=== PATIENT | male | born 1965 | race Caucasian/White ===

== ENCOUNTER 2019-12-19 07:26 | Outpatient (CLI) | payer OTHER, SELFPAY ==
--- NOTE | ~2019-12-19 | XR_ITS ---
EXAMINATION: XR ankle LT min 3V EXAM DATE: 12/19/2019 07:57 INDICATION: No known recent injury provided at this time. Pain of the left ankle. TECHNIQUE: Left ankle frontal, lateral and oblique projections obtained and reviewed. There is no pr ior study for comparison. FINDINGS: The left ankle mortise appears intact. Sequela from prior malleolar avulsion injuries. L arge posterior calcaneal spur. Mild Quan deformity. 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 There are no acute fractures or dislocations identified. There is no subcutan eous gas. Some diffuse soft tissue swelling. There are no radiopaque foreign bodies. IMPRESSION: Chronic findings as above. Reviewed, dictated and finalized at location A. 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
[2019-12-19 08:25] LABS: Basophils Percent Auto 0.4 % (0.2-1.2); Eosinophils Absolute Auto 0.2 K/mm3 (0-0.3); Eosinophils Percent Auto 2.2 % (0-4.4); Hemoglobin 13.1 g/dL (14.0-18.0); Immature Granulocyte Absolute 0.02 K/mm3 (0.00-0.031); Immature Granulocyte Percent A 0.3 % (0-0.5); Lymphocytes Absolute Auto 2.77 K/mm3 (0.9-3.2); Lymphocytes Percent Auto 35.2 % (18.3-44.2); Mean Corpuscular HGB Conc 31.2 g/dl (32-36); Mean Corpuscular Hemoglobin 29.2 pg (26-34); Mean Corpuscular Volume 93.5 fl (80-100); Mean Platelet Volume 10.7 fl (7.4-10.4); Monocytes Absolute Auto 0.5 K/mm3 (0.1-0.6); Monocytes Percent Auto 6.9 % (2.6-8.5); Neutrophils Absolute Auto 4.3 K/mm3 (1.3-6.7); Platelet Count Result 329 k/mm3 (150-375); Red Blood Count 4.49 M/mm3 (4.6-6.20); Red Cell Distribution Width 14.7 % (11.5-14.5); White Blood Count 7.9 K/mm3 (4.5-10.0)
[2019-12-19 08:38] LABS: Alanine Aminotransferase 31 U/L (4-50); Albumin Level 4.8 g/dL (3.5-5.1); Alkaline Phosphatase 116 U/L (38-126); Aspartate Amino Transferase 31 U/L (17-59); Bilirubin,Total 0.7 mg/dL (0.2-1.3); Blood Urea Nitrogen 19 mg/dL (9-20); Calcium 9.7 mg/dL (8.4-10.2); Carbon Dioxide 30 mmol/L (22-30); Chloride 98 mmol/L (98-107); Cholesterol 229 mg/dL (0-200); Estimated Glomerular Filt Rate > 60; Glucose 89 mg/dL (75-110); HDL Direct 62 mg/dL; Lipase 76 U/L (23-300); Potassium 3.7 mmol/L (3.4-5.0); Sodium 136 mmol/L (137-145); Triglycerides 202 mg/dL (<150)
[2019-12-19 08:49] LABS: LDL Cholesterol Direct 126 mg/dL
[2019-12-19 09:35] LABS: Free T4 Free Thyroxine 1.33 ng/mL (0.78-2.19)
== END 2019-12-19 07:27 | disposition home or self-care (01) ==
PROVIDERS: PCP Family Medicine; Visit Provider Physician Assistant
DX: R53.83 Other fatigue (principal); R10.9 Unspecified abdominal pain; Z13.220 Encounter for screening for lipoid disorders; M25.579 Pain in unspecified ankle and joints of unspecified foot
CPT/HCPCS: 36415; 73610; 80053; 80061; 83690; 84439; 84443; 85025

== ENCOUNTER 2020-01-01 07:15 | Outpatient (CLI) | payer OTHER, SELFPAY ==
--- NOTE | ~2020-01-01 | MM_ITS ---
EXAMINATION: MM screening erin BI w elly HISTORY: Screening mammogram TECHNIQUE: Craniocaudal and mediolateral oblique 3-D tomosynthesis images were obtained and synthetic 2-D images were generated. CAD analysis was submitted and interpreted. COMPARISON: None, baseline BREAST PARENCHYMAL COMPOSITION: There are scattered areas of fibroglandular density. FINDINGS: RIGHT BREAST: There is no evidence of suspicious mass, calcification, or architectural distortion to suggest malignancy. LEFT BREAST: There is a possible mass with architectural distortion in the anterior/middle third of t he outer breast best appreciated 4.5 cm from the nipple on the mediolateral oblique view in line with the nipple axis. IMPRESSION: 1. Possible left breast mass and architectural distortion. 2. Additional mammographic views and possible breast ultrasound are recommended. BI-RADS Category 0: Incomplete: Needs additional imaging evaluation. Reviewed, dictated and finalized at location A. 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 Possible left breast mass and architectural distortion. 2. Additional mammographic views and possible breast ultrasound are recommended . BI-RADS Category 0: Incomplete: Needs additional imaging evaluation.
== END 2020-01-01 07:16 | disposition home or self-care (01) ==
LOC: ANHIMG 07:20
PROVIDERS: PCP Family Medicine; Visit Provider Physician Assistant
DX: Z12.31 Encounter for screening mammogram for malignant neoplasm of breast (principal); R92.8 Other abnormal and inconclusive findings on diagnostic imaging of breast
CPT/HCPCS: 77063; 77067

== ENCOUNTER 2020-01-21 11:43 | Outpatient (CLI) | payer OTHER, SELFPAY ==
--- NOTE | ~2020-01-21 | MMUS_ITS ---
EXAMINATION: MM diagnostic mammo unilat LT, US breast LT limited HISTORY: Possible left breast mass and architectural distortion on screening mammogram TECHNIQUE: Additional 3-D tomosynthesis images of the left breast were performed and synthetic 2-D im ages were generated. CAD analysis was submitted and interpreted. High resolution limited left breast ultrasound was performed. COMPARISON: 01/01/2020 FINDINGS: MAMMOGRAPHIC FINDINGS: No definite mass or architectural distortion persist with additional mammographic views. An asymmetry persists in the middle third of the breast on the mediolateral oblique view. There is no suspicious calcification. ULTRASOUND: There is no evidence of focal abnormal solid or cystic lesion in the vicinity of the mammographic fin ding in question. IMPRESSION: 1. Persistent asymmetry of the left breast without suspicious sonographic correlate. 2. Recommend 6 month follow-up left diagnostic mammogram with possible ultrasound. BI-RADS category 3, probably benign findings. Reviewed, dictated and finalized at location A. IMPRESSION: 1. Persistent asymmetry of the left breast without suspicious sonographic corre late. 2. Recommend 6 month follow-up left diagnostic mammogram with possible ultrasou nd. BI-RADS category 3, probably benign findings.
== END 2020-01-21 11:44 | disposition home or self-care (01) ==
LOC: ANHIMG 11:45
PROVIDERS: PCP Family Medicine; Visit Provider Physician Assistant
DX: R92.8 Other abnormal and inconclusive findings on diagnostic imaging of breast (principal)
CPT/HCPCS: 76642; 77065

== ENCOUNTER 2021-02-10 11:33 | Outpatient (CLI) | payer OTHER, SELFPAY ==
--- NOTE | ~2021-02-10 | XR_ITS ---
EXAMINATION: XR lumbar spine 2-3V EXAM DATE: 02/10/2021 12:03 INDICATION: M54.9 - Dorsalgia, unspecified. TECHNIQUE: Lumber spine frontal, lateral, lateral L5-S1 projections for interpretation. There is no prior study for comparison. FINDINGS: Mild to moderate disc disease from T11 through L5, mild at L5-S1. Mild to moderate lumbar f acet arthropathy. The vertebral bodies are aligned in the AP dimension. No spondylolysis. Paraspinal soft tissue is unremarkable. Sacrum, sacroiliac joints, sacral arcuate lines are intact. Calcificatio ns in the pelvis are believed to be phleboliths. IMPRESSION: Mild to moderate lumbar spondylosis. Reviewed, dictated and finalized at location A.
--- NOTE | ~2021-02-10 | XR_ITS ---
XR hip LT 2V w AP pelvis 02/10/2021 12:03 Indication: Left hip pain Procedure: AP pelvis and 2 views left hip Comparison: No prior studies for comparison. Findings: There is mild osteoarthritis of the hips. No acute fracture or traumatic malalignment. No s ignificant soft tissue abnormality. No foreign bodies. There are multiple pelvic phleboliths. Impression: 1: Mild osteoarthritis of the hips. Reviewed, dictated and finalized at location B. Impression: 1: Mild osteoarthritis of the hips.
== END 2021-02-10 11:34 | disposition home or self-care (01) ==
PROVIDERS: PCP Emergency Medicine; Visit Provider Emergency Medicine
DX: M47.896 Other spondylosis, lumbar region (principal); M16.0 Bilateral primary osteoarthritis of hip
CPT/HCPCS: 72100; 73502

== ENCOUNTER 2021-02-17 09:20 | Outpatient (CLI) | payer OTHER, SELFPAY ==
--- NOTE | ~2021-02-17 | MM_ITS ---
EXAMINATION: MM screening erin BI w elly HISTORY: Screening mammogram TECHNIQUE: Craniocaudal and mediolateral oblique 3-D tomosynthesis images were obtained and synthetic 2-D images were generated. CAD analysis was submitted and interpreted. COMPARISON: 01/21/2020 diagnostic left mammogram and limited left breast ultrasound bilateral digital screening mammogram BREAST PARENCHYMAL COMPOSITION: There are scattered areas of fibroglandular density. FINDINGS: Circumscribed right axillary tail lymph nodes. There is no evidence of suspicious mass, gonsalo cification, or architectural distortion to suggest malignancy in either breast. There has been no angelica picious interval change. IMPRESSION: 1. No mammographic evidence of malignancy. 2. Recommend routine screening mammography in one year. BI-RADS Category 2: Benign finding(s). Reviewed, dictated and finalized at location A.
== END 2021-02-17 09:21 | disposition home or self-care (01) ==
LOC: ANHIMG 09:23
PROVIDERS: PCP Emergency Medicine; Visit Provider Emergency Medicine
DX: Z12.31 Encounter for screening mammogram for malignant neoplasm of breast (principal)
CPT/HCPCS: 77063; 77067

== ENCOUNTER 2021-04-15 12:30 | Outpatient (RCR) | payer OTHER, SELFPAY ==
--- NOTE | 2021-03-04 14:24 | PTOPEVAL ---
PHYSICAL THERAPY EVALUATION Thank you for referring Meg Torres to [facility].? Meg was evaluated for the dx of left hip pain/unspecified OA. The patient is scheduled to be seen for therapy?1x/week for 6 weeks( work schedule affects pt ability to come more frequently). Please review, sign, date and return this plan of care SAL. I agree with and certify that the following plan of care is medically necessary. Referring Physician Date Attending Provider: Cayetano Swanson MD *PT Outpatient Evaluation Start: 03/04/21 12:33 Freq: Status: Active Protocol: Document 03/04/21 12:33 MLV (Rec: 03/04/21 13:38 MLV [id number]) Therapy Assessment Status Assessment Status Assessment Status Evaluation Evaluation Information Problem Diagnosis left hip pain/OA Onset 1 month ago. 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 The patient had no injury, just started having pain that is aggravated by walking, sit to stand and when lying in bed (supine). Pain is affecting her sleep. Pt quit doing yardwork a year ago due to the start of hip pain troubles. When PT enquired about possible knee trouble and gait deviations, pt then noted that she has had trouble with her knees (stiffness) for a long time but has never had it checked. Diagnostic Tests X-Rays For This Problem Yes: lumbar DDD and hip OA Previous Treatments Previous Treatments For This Problem none Pain Assessment Timing of Pain Assessment Timing of Pain Assessment Assessment Pain Scale Pain Scale Used Numeric (1 - 10) Self Report Pain Assessment Bilateral Knee(s) Reported Pain Level 0 Pain Description Aching,Pulling,Sharp Pain Frequency Chronic Other Pain Description pain occurs with sit to stand and when attempting normal base of support Greatest Pain Intensity 6 Pain Behaviors Guarding,Limping Left Lateral Hip(s) Reported Pain Level 0 Pain Description Pulling Pain Fredy
--- NOTE | 2021-04-15 15:58 | PTOPEVAL ---
PHYSICAL THERAPY DISCHARGE Thank you for referring Meg Torres to [facility].? The patient has completed her therapy for the dx of left hip pain. Goals are met. DC PT. Please review, sign, date and return this plan of care SAL. I agree with and certify the following plan of care. 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 The patient reports walking better with much less pain and sleeping a lot better. Pt denied trouble with her HEP and plans to continue exercises on own. Pt sees the MD at the end of the month for follow up. Pain Assessment Timing of Pain Assessment Timing of Pain Assessment Assessment Pain Scale Pain Scale Used Numeric (1 - 10) Self Report Pain Assessment Bilateral Knee(s) Reported Pain Level 0 Other Pain Description 3 with walking but now on and off Left Lateral Hip(s) Reported Pain Level 0 Radicular Pain Location free of all symptoms including the tingling Left Lower Back Reported Pain Level 0 Pain Score Pain Score 0,0,0: Self Report Interventions Used Interventions Used By Clinicians Education,Electrical Stimulation,Exercise,Heat, Manual Therapy Techniques Pain Relief Interventions Used By Exercise Patient Cervical and Lumbar ROM Lumbar ROM Lumbar Flexion Active Floor Query Text:Hands to: Lumbar Extension (0-40) 20 Query Text:Active in Degrees Lumbar Lateral Flexion Right (0-40) 40 Query Text:Active in Degrees Lumbar Lateral Flexion Left (0-40) 40 Query Text:Active in Degrees Lateral Rotation Right (0-45) 45 Query Text:Active in Degrees Lateral Rotation Left (0-45) 45 Query Text:Active in Degrees Lumbar ROM WNL Lower Extremity Range of
== END 2021-04-16 10:54 | disposition home or self-care (01) ==
LOC: ANHPT 12:30
PROVIDERS: PCP Emergency Medicine; Visit Provider Emergency Medicine
DX: M54.9 Dorsalgia, unspecified (principal); G89.29 Other chronic pain; M25.552 Pain in left hip; M19.90 Unspecified osteoarthritis, unspecified site
CPT/HCPCS: 97014; 97110; 97140; 97162; G0283

== ENCOUNTER 2021-05-06 08:13 | Outpatient (CLI) | payer OTHER, SELFPAY ==
[2021-05-06 09:05] LABS: Alanine Aminotransferase 35 U/L (4-35); Albumin Level 4.5 g/dL (3.5-5.1); Alkaline Phosphatase 107 U/L (38-126); Anion Gap 8 mmol/L (8-16); Aspartate Amino Transferase 36 U/L (14-36); Bilirubin,Total 0.5 mg/dL (0.2-1.3); Blood Urea Nitrogen 14 mg/dL (7-17); Calcium 9.8 mg/dL (8.4-10.2); Carbon Dioxide 28 mmol/L (22-30); Chloride 103 mmol/L (98-107); Cholesterol 249 mg/dL (0-200); Estimated Glomerular Filt Rate > 60; Glucose 99 mg/dL (65-105); HDL Direct 64 mg/dL; Potassium 4.6 mmol/L (3.4-5.0); Sodium 139 mmol/L (137-145); Triglycerides 234 mg/dL (<150)
[2021-05-06 09:17] LABS: LDL Cholesterol Direct 103 mg/dL
[2021-05-09 13:40] LABS: Vitamin D 1,25 (OH)2 Total 64 pg/mL (18-72); Vitamin D2 1,25 (OH)2 <8 pg/mL; Vitamin D3 1,25 (OH)2 64 pg/mL
== END 2021-05-06 08:14 | disposition home or self-care (01) ==
PROVIDERS: PCP Emergency Medicine; Visit Provider Emergency Medicine
DX: E78.5 Hyperlipidemia, unspecified (principal); M83.9 Adult osteomalacia, unspecified; R53.83 Other fatigue
CPT/HCPCS: 36415; 80053; 80061; 82652; 84443

== ENCOUNTER 2021-08-05 09:48 | Outpatient (CLI) | payer OTHER, SELFPAY ==
[2021-08-05 11:15] LABS: Alanine Aminotransferase 36 U/L (4-35); Albumin Level 4.8 g/dL (3.5-5.1); Alkaline Phosphatase 105 U/L (38-126); Anion Gap 8 mmol/L (8-16); Aspartate Amino Transferase 31 U/L (14-36); Bilirubin,Total 0.5 mg/dL (0.2-1.3); Blood Urea Nitrogen 16 mg/dL (7-17); Calcium 9.6 mg/dL (8.4-10.2); Carbon Dioxide 28 mmol/L (22-30); Chloride 102 mmol/L (98-107); Cholesterol 236 mg/dL (0-200); Estimated Glomerular Filt Rate > 60; Glucose 96 mg/dL (65-110); HDL Direct 52 mg/dL; Potassium 4.2 mmol/L (3.4-5.0); Sodium 138 mmol/L (137-145); Triglycerides 320 mg/dL (<150)
[2021-08-05 11:26] LABS: LDL Cholesterol Direct 100 mg/dL
== END 2021-08-05 09:49 | disposition home or self-care (01) ==
PROVIDERS: PCP Emergency Medicine; Visit Provider Emergency Medicine
DX: Z13.6 Encounter for screening for cardiovascular disorders (principal)
CPT/HCPCS: 36415; 80053; 80061

== ENCOUNTER 2021-11-11 10:15 | Outpatient (CLI) | payer OTHER, SELFPAY ==
[2021-11-11 11:04] LABS: Alanine Aminotransferase 42 U/L (4-35); Albumin Level 4.4 g/dL (3.5-5.1); Alkaline Phosphatase 110 U/L (38-126); Anion Gap 13 mmol/L (8-16); Aspartate Amino Transferase 35 U/L (14-36); Bilirubin,Total 0.7 mg/dL (0.2-1.3); Blood Urea Nitrogen 15 mg/dL (7-17); Carbon Dioxide 26 mmol/L (22-30); Chloride 99 mmol/L (98-107); Cholesterol 239 mg/dL (0-200); Estimated Glomerular Filt Rate > 60; Glucose 100 mg/dL (65-110); HDL Direct 50 mg/dL; Sodium 138 mmol/L (137-145); Triglycerides 308 mg/dL (<150)
[2021-11-11 11:15] LABS: LDL Cholesterol Direct 104 mg/dL
== END 2021-11-11 10:16 | disposition home or self-care (01) ==
LOC: ANHLAB 10:16
PROVIDERS: PCP Emergency Medicine; Visit Provider Emergency Medicine
DX: E78.00 Pure hypercholesterolemia, unspecified (principal)
CPT/HCPCS: 36415; 80053; 80061

== ENCOUNTER 2022-02-10 09:30 | Outpatient (CLI) | payer OTHER, SELFPAY ==
[2022-02-10 11:28] LABS: Alanine Aminotransferase 30 U/L (4-35); Albumin Level 4.6 g/dL (3.5-5.1); Alkaline Phosphatase 103 U/L (38-126); Anion Gap 10 mmol/L (8-16); Aspartate Amino Transferase 31 U/L (14-36); Bilirubin,Total 0.5 mg/dL (0.2-1.3); Blood Urea Nitrogen 19 mg/dL (7-17); Calcium 8.9 mg/dL (8.4-10.2); Carbon Dioxide 25 mmol/L (22-30); Chloride 101 mmol/L (98-107); Cholesterol 219 mg/dL (0-200); Estimated Glomerular Filt Rate > 60; Glucose 87 mg/dL (65-110); HDL Direct 49 mg/dL; Potassium 4.1 mmol/L (3.4-5.0); Sodium 136 mmol/L (137-145); Triglycerides 195 mg/dL (<150)
[2022-02-10 11:39] LABS: LDL Cholesterol Direct 112 mg/dL
== END 2022-02-10 09:31 | disposition home or self-care (01) ==
LOC: ANHLAB 09:32
PROVIDERS: PCP Emergency Medicine; Visit Provider Emergency Medicine
DX: E78.00 Pure hypercholesterolemia, unspecified (principal)
CPT/HCPCS: 36415; 80053; 80061

== ENCOUNTER 2022-02-23 08:13 | Outpatient (CLI) | payer OTHER, SELFPAY ==
--- NOTE | ~2022-02-23 | MM_ITS ---
EXAMINATION: MM screening erin BI w elly HISTORY: Screening mammogram TECHNIQUE: Craniocaudal and mediolateral oblique 3-D tomosynthesis images were obtained and synthetic 2-D images were generated. CAD analysis was submitted and interpreted. COMPARISON: bilateral screening mammogram 01/20/2019 diagnostic left screening mammogram 01/01/2020 bilateral screening mammogram BREAST PARENCHYMAL COMPOSITION: There are scattered areas of fibroglandular density. FINDINGS: There is no evidence of suspicious mass, calcification, or architectural distortion to sugg est malignancy in either breast. There has been no suspicious interval change. IMPRESSION: 1. No mammographic evidence of malignancy. 2. Recommend routine screening mammography in one year. BI-RADS Category 1: Negative Reviewed, dictated and finalized at location A.
== END 2022-02-23 08:14 | disposition home or self-care (01) ==
LOC: ANHIMG 08:14
PROVIDERS: PCP Emergency Medicine; Visit Provider Emergency Medicine
DX: Z12.31 Encounter for screening mammogram for malignant neoplasm of breast (principal)
CPT/HCPCS: 77063; 77067

== ENCOUNTER 2022-05-12 10:01 | Outpatient (CLI) | payer OTHER, SELFPAY ==
[2022-05-12 10:48] LABS: LDL Cholesterol Direct 87 mg/dL
[2022-05-12 10:49] LABS: Alanine Aminotransferase 34 U/L (6-35); Albumin Level 4.8 g/dL (3.5-5.1); Alkaline Phosphatase 98 U/L (38-126); Anion Gap 11 mmol/L (8-16); Aspartate Amino Transferase 33 U/L (14-36); Bilirubin,Total 0.9 mg/dL (0.2-1.3); Blood Urea Nitrogen 15 mg/dL (7-17); Calcium 8.6 mg/dL (8.4-10.2); Carbon Dioxide 25 mmol/L (22-30); Chloride 100 mmol/L (98-107); Cholesterol 246 mg/dL (0-200); Estimated Glomerular Filt Rate > 60; Glucose 94 mg/dL (65-110); HDL Direct 50 mg/dL; Sodium 136 mmol/L (137-145); Triglycerides 354 mg/dL (<150)
== END 2022-05-12 10:02 | disposition home or self-care (01) ==
LOC: ANHLAB 10:01
PROVIDERS: PCP Emergency Medicine; Visit Provider Emergency Medicine
DX: Z13.6 Encounter for screening for cardiovascular disorders (principal)
CPT/HCPCS: 36415; 80053; 80061